=== PATIENT | female | born 1990 | race Caucasian/White ===

== ENCOUNTER 2016-12-12 09:34 | Emergency (ER) | payer OTHER ==
[~2016-12-12] VITALS: Ht 160 cm; Wt 57.0 kg
[~2016-12-12 09:34] MED LIST: ADVIL200 MG PO; CEFDINIR300 MG PO; CLINDAMYCIN HC300 MG PO; ENDOCET 5-3251 EACH PO; IBUPROFEN800 MG PO; KEFLEX500 MG PO; METHADONE H5 MG/5 ML PO; METHADONE HCL PO; METHADONE10 MG PO; MOTRIN800 MG PO; NOHOMEMEDS; NORCO 5/3251 TABLET PO; PRENATAL VITAM1 EAC1 PO; WOMEN'S DAILY1 EAC2 PO
[2016-12-12] MEDS ORDERED: NORCO 7.5/321 TABLET PO (11:28)
[2016-12-12] MEDS ORDERED: MOTRIN800 MG PO (11:28)
[2016-12-12] MEDS ORDERED: DAILY VALUE1 EACH PO (11:44)
[2016-12-12 11:56] VITALS: BP 117/89
== END 2016-12-12 11:56 | disposition home or self-care (01) ==
LOC: EME 09:34
PROC: 2W3CX1Z Immobilization of Right Lower Arm using Splint (ICD-10-PCS; principal; 2016-12-12)
DX: S69.91XA Unspecified injury of right wrist, hand and finger(s), initial encounter (principal); M25.431 Effusion, right wrist; W00.0XXA Fall on same level due to ice and snow, initial encounter; Z79.891 Long term (current) use of opiate analgesic
CPT/HCPCS: 73110; 99281; 99284